=== PATIENT | male | born 1955 | race Two or more races ===

== ENCOUNTER → 2020-03-16 09:21 | Outpatient (CLI) | payer OTHER | END | disposition home or self-care (01) | LOC: LAB 09:21 | PROVIDERS: ATTEND Internal Medicine Cardiovascular Disease | DX: N40.0 Benign prostatic hyperplasia without lower urinary tract symptoms (principal); I10 Essential (primary) hypertension; E11.9 Type 2 diabetes mellitus without complications; E03.8 Other specified hypothyroidism; E78.2 Mixed hyperlipidemia; Z12.11 Encounter for screening for malignant neoplasm of colon; E55.9 Vitamin D deficiency, unspecified; J44.9 Chronic obstructive pulmonary disease, unspecified ==

== ENCOUNTER 2020-03-28 12:13 | Outpatient (CLI) | payer OTHER | END 2020-03-28 12:27 | disposition home or self-care (01) | LOC: LAB 12:13 | PROVIDERS: ATTEND Internal Medicine Cardiovascular Disease | DX: I10 Essential (primary) hypertension (principal); R97.20 Elevated prostate specific antigen [PSA]; E03.8 Other specified hypothyroidism; D64.89 Other specified anemias; Z00.8 Encounter for other general examination ==

== ENCOUNTER → 2020-08-23 09:05 | Outpatient (CLI) | payer OTHER | END | disposition home or self-care (01) | LOC: LAB 09:05 | PROVIDERS: ATTEND Internal Medicine Cardiovascular Disease | DX: E03.8 Other specified hypothyroidism (principal); I10 Essential (primary) hypertension; E78.2 Mixed hyperlipidemia; E11.9 Type 2 diabetes mellitus without complications ==

== ENCOUNTER → 2020-12-13 11:03 | Outpatient (CLI) | payer OTHER | END | disposition home or self-care (01) | LOC: LAB 11:03 | PROVIDERS: ATTEND Internal Medicine Cardiovascular Disease | DX: E78.2 Mixed hyperlipidemia (principal) ==

== ENCOUNTER 2021-05-01 10:37 | Outpatient (CLI) | payer OTHER | END 2021-05-01 10:42 | disposition home or self-care (01) | LOC: RAD 10:37 | PROVIDERS: ATTEND General Practice | DX: G44.89 Other headache syndrome (principal); Z00.00 Encounter for general adult medical examination without abnormal findings ==

== ENCOUNTER 2021-05-23 12:15 | Outpatient (CLI) | payer OTHER | END 2021-05-23 13:37 | disposition home or self-care (01) | LOC: LAB 12:15 | PROVIDERS: ATTEND Radiology Diagnostic Radiology | DX: G44.52 New daily persistent headache (NDPH) (principal) ==

== ENCOUNTER 2021-06-05 10:05 | Outpatient (CLI) | payer OTHER | END 2021-06-05 10:13 | disposition home or self-care (01) | LOC: TOM 10:05 | PROVIDERS: ATTEND General Practice | DX: G93.89 Other specified disorders of brain (principal); G44.52 New daily persistent headache (NDPH) | CPT/HCPCS: 70470; Q9965 ==

== ENCOUNTER 2021-09-27 10:39 | Outpatient (CLI) | payer OTHER | END 2021-09-27 10:44 | disposition home or self-care (01) | LOC: LAB 10:39 | PROVIDERS: ATTEND General Practice | DX: D50.8 Other iron deficiency anemias (principal); N39.0 Urinary tract infection, site not specified; B96.29 Other Escherichia coli [E. coli] as the cause of diseases classified elsewhere; E11.21 Type 2 diabetes mellitus with diabetic nephropathy; I10 Essential (primary) hypertension; E03.4 Atrophy of thyroid (acquired); E78.2 Mixed hyperlipidemia; K62.5 Hemorrhage of anus and rectum; R10.84 Generalized abdominal pain; N40.1 Benign prostatic hyperplasia with lower urinary tract symptoms; I48.0 Paroxysmal atrial fibrillation ==

== ENCOUNTER 2021-10-25 12:06 | Outpatient (CLI) | payer OTHER | END 2021-10-25 12:14 | disposition home or self-care (01) | LOC: RAD 12:06 | PROVIDERS: ATTEND Chiropractor | DX: M99.01 Segmental and somatic dysfunction of cervical region (principal); M99.02 Segmental and somatic dysfunction of thoracic region; M99.03 Segmental and somatic dysfunction of lumbar region; M99.05 Segmental and somatic dysfunction of pelvic region ==

== ENCOUNTER → 2022-05-14 09:59 | Outpatient (CLI) | payer OTHER | END | disposition home or self-care (01) | LOC: LAB 09:59 | PROVIDERS: ATTEND General Practice | DX: D50.0 Iron deficiency anemia secondary to blood loss (chronic) (principal); N39.0 Urinary tract infection, site not specified; E11.21 Type 2 diabetes mellitus with diabetic nephropathy; I10 Essential (primary) hypertension; E03.4 Atrophy of thyroid (acquired); E78.2 Mixed hyperlipidemia; K62.5 Hemorrhage of anus and rectum; R10.84 Generalized abdominal pain; N40.1 Benign prostatic hyperplasia with lower urinary tract symptoms; I48.0 Paroxysmal atrial fibrillation; A63.0 Anogenital (venereal) warts; B96.29 Other Escherichia coli [E. coli] as the cause of diseases classified elsewhere ==

== ENCOUNTER 2023-01-16 11:51 | Outpatient (CLI) | payer OTHER | END 2023-01-16 11:56 | disposition home or self-care (01) | LOC: RAD 11:51 | DX: J44.9 Chronic obstructive pulmonary disease, unspecified (principal); J30.89 Other allergic rhinitis ==

== ENCOUNTER 2023-06-30 09:37 | Outpatient (CLI) | payer OTHER ==
[2023-06-30 10:12] LABS: HEMATOCRIT 42.2 % (39.0-48.0); HEMOGLOBIN 13.8 g/dL (13-16.00); MEAN CELL VOLUME 88.1 fL (80.0-100.00); MEAN CORPUSCULAR HEMOGLOBIN 28.8 pg (27.00-32.0); MEAN CORPUSCULAR HGB CONC 32.7 g/dl (32.0-36.0); PLATELET COUNT 215 K/uL (150-450); RED BLOOD COUNT 4.79 M/uL (4.00-6.00); RED CELL DISTRIBUTION WIDTH 13.4 % (11.5-14.5)
[2023-06-30 10:14] LABS: PH,URINE 6.5 (5.0-8.0); URINE APPEARANCE Clear; URINE BILIRRUBIN Negative (NEGATIVE); URINE BLOOD Negative; URINE COLOR Yellow; URINE GLUCOSE Negative (NEGATIVE); URINE LEUKOCYTE Trace; URINE NITRATE Negative; URINE PROTEIN Negative (NEGATIVE); URINE UROBILINOGEN 0.2 E.U./dl
[2023-06-30 10:15] LABS: URINE BACTERIA 6.2 uL (0.0-1933); URINE EPITHELIAL CELLS 1.6 uL (0.0-38.8); URINE WBC 20.2 uL (0.0-23.2)
[2023-06-30 10:26] LABS: URINE RBC 0.7 uL (0.0-20.8)
[2023-06-30 10:58] LABS: ALBUMIN 3.7 gm/dL (3.4-5.0); BILIRUBIN TOTAL 0.39 mg/dL (0.3-1.2); CALCIUM 8.9 mg/dL (8.5-10.1); CREATININE SERUM 1.09 mg/dL (0.70-1.30); GFR 67.47; GLOBULINA 3.1 G/DL (2.4-3.5); POTASSIUM 5.01 mEq/L (3.5-5.1); TOTAL PROTEIN 6.8 gm/dL (6.4-8.2); TSH 1.46 uIU/mL (0.358-3.74)
[2023-06-30 11:03] LABS: CHOL HDL RATIO 6.5 (0-5.0)
== END 2023-06-30 09:44 | disposition home or self-care (01) ==
LOC: LAB 09:37
DX: N39.0 Urinary tract infection, site not specified (principal); E11.21 Type 2 diabetes mellitus with diabetic nephropathy; I10 Essential (primary) hypertension; E03.4 Atrophy of thyroid (acquired); E78.2 Mixed hyperlipidemia; K62.5 Hemorrhage of anus and rectum; R10.84 Generalized abdominal pain; I48.0 Paroxysmal atrial fibrillation; D68.9 Coagulation defect, unspecified; A63.0 Anogenital (venereal) warts

== ENCOUNTER → 2023-11-18 11:50 | Outpatient (CLI) | payer OTHER ==
[2023-11-18 12:47] LABS: HEMATOCRIT 40.9 % (39.0-48.0); HEMOGLOBIN 13.7 g/dL (13-16.00); MEAN CELL VOLUME 86.9 fL (80.0-100.00); MEAN CORPUSCULAR HEMOGLOBIN 29.2 pg (27.00-32.0); MEAN CORPUSCULAR HGB CONC 33.6 g/dl (32.0-36.0); PLATELET COUNT 203 K/uL (150-450); RED CELL DISTRIBUTION WIDTH 13.9 % (11.5-14.5)
[2023-11-18 12:51] LABS: URINE APPEARANCE Clear; URINE BILIRRUBIN Negative (NEGATIVE); URINE BLOOD Negative; URINE COLOR Yellow; URINE GLUCOSE Negative (NEGATIVE); URINE LEUKOCYTE Trace; URINE NITRATE Negative; URINE PROTEIN Negative (NEGATIVE); URINE UROBILINOGEN 0.2 E.U./dl
[2023-11-18 12:55] LABS: URINE WBC 12.4 uL (0.0-23.2)
[2023-11-18 13:19] LABS: ALBUMIN 3.8 gm/dL (3.4-5.0); BILIRUBIN TOTAL 0.35 mg/dL (0.3-1.2); CALCIUM 8.5 mg/dL (8.5-10.1); CHOL HDL RATIO 6.2 (0-5.0); CREATININE SERUM 1.05 mg/dL (0.70-1.30); GFR 70.45; GLOBULINA 2.7 G/DL (2.4-3.5); POTASSIUM 4.43 mEq/L (3.5-5.1); PROSTATIC SPECIFIC ANTIGEN 2.93 NG/ML (0.010-4.00); TOTAL PROTEIN 6.5 gm/dL (6.4-8.2); TSH 1.23 uIU/mL (0.358-3.74)
== END | disposition home or self-care (01) ==
LOC: LAB 11:50
PROVIDERS: ATTEND General Practice
DX: D50.0 Iron deficiency anemia secondary to blood loss (chronic) (principal); N39.0 Urinary tract infection, site not specified; E11.21 Type 2 diabetes mellitus with diabetic nephropathy; I10 Essential (primary) hypertension; E78.2 Mixed hyperlipidemia; K62.5 Hemorrhage of anus and rectum; R10.84 Generalized abdominal pain; Z12.11 Encounter for screening for malignant neoplasm of colon; N40.1 Benign prostatic hyperplasia with lower urinary tract symptoms; D68.9 Coagulation defect, unspecified; A63.0 Anogenital (venereal) warts

== ENCOUNTER 2023-11-24 10:58 | Outpatient (CLI) | payer OTHER ==
[2023-11-24 13:31] LABS: ob NEGATIVE (NEGATIVE)
== END 2023-11-24 10:59 | disposition home or self-care (01) ==
LOC: LAB 10:58
PROVIDERS: ATTEND General Practice
DX: D50.0 Iron deficiency anemia secondary to blood loss (chronic) (principal); N39.0 Urinary tract infection, site not specified; E11.21 Type 2 diabetes mellitus with diabetic nephropathy; E03.4 Atrophy of thyroid (acquired); E78.2 Mixed hyperlipidemia; K62.5 Hemorrhage of anus and rectum; R10.84 Generalized abdominal pain; Z12.11 Encounter for screening for malignant neoplasm of colon; N40.1 Benign prostatic hyperplasia with lower urinary tract symptoms; D68.9 Coagulation defect, unspecified; I48.0 Paroxysmal atrial fibrillation; A63.0 Anogenital (venereal) warts

== ENCOUNTER 2024-03-04 09:30 | Outpatient (CLI) | payer OTHER | END 2024-03-04 09:36 | disposition home or self-care (01) | LOC: RAD 09:30 | PROVIDERS: ATTEND General Practice | DX: J20.9 Acute bronchitis, unspecified (principal) ==

== ENCOUNTER 2024-06-01 09:57 | Outpatient (CLI) | payer OTHER | END 2024-06-01 10:07 | disposition home or self-care (01) | LOC: RAD 09:57 | PROVIDERS: ATTEND General Practice | DX: R22.1 Localized swelling, mass and lump, neck (principal) ==

== ENCOUNTER 2024-08-19 10:47 | Outpatient (CLI) | payer OTHER ==
[2024-08-19 11:41] LABS: URINE APPEARANCE Clear; URINE BILIRRUBIN Negative (NEGATIVE); URINE BLOOD Negative; URINE COLOR Yellow; URINE GLUCOSE Negative (NEGATIVE); URINE KETONE Negative (NEGATIVE); URINE LEUKOCYTE Small; URINE NITRATE Negative; URINE PROTEIN Negative (NEGATIVE); URINE UROBILINOGEN 0.2 E.U./dl
[2024-08-19 11:42] LABS: URINE BACTERIA 15.8 uL (0.0-1933); URINE EPITHELIAL CELLS 2.5 uL (0.0-38.8); URINE WBC 16.4 uL (0.0-23.2)
[2024-08-19 11:43] LABS: HEMATOCRIT 42.5 % (39.0-48.0); HEMOGLOBIN 14.1 g/dL (13-16.00); MEAN CELL VOLUME 86.4 fL (80.0-100.00); MEAN CORPUSCULAR HEMOGLOBIN 28.6 pg (27.00-32.0); MEAN CORPUSCULAR HGB CONC 33.1 g/dl (32.0-36.0); PLATELET COUNT 213 K/uL (150-450); RED BLOOD COUNT 4.92 M/uL (4.00-6.00); RED CELL DISTRIBUTION WIDTH 14.1 % (11.5-14.5)
[2024-08-19 11:44] LABS: URINE CAST 0.14 uL (0.0-1.40)
[2024-08-19 12:54] LABS: ALBUMIN 3.9 gm/dL (3.4-5.0); BILIRUBIN TOTAL 0.45 mg/dL (0.3-1.2); CALCIUM 8.7 mg/dL (8.5-10.1); CREATININE SERUM 1.14 mg/dL (0.70-1.30); GFR 63.88; GLOBULINA 3.1 G/DL (2.4-3.5); POTASSIUM 5.01 mEq/L (3.5-5.1); PROSTATIC SPECIFIC ANTIGEN 3.25 NG/ML (0.010-4.00); TSH 1.4 uIU/mL (0.358-3.74)
[2024-08-19 12:56] LABS: CHOL HDL RATIO 6.9 (0-5.0)
[2024-08-19 13:04] LABS: VITAMIN D3 25 HYDROXY 59.28 ng/ml (30-120)
== END 2024-08-19 10:56 | disposition home or self-care (01) ==
LOC: LAB 10:47
PROVIDERS: ATTEND General Practice
DX: E21.5 Disorder of parathyroid gland, unspecified (principal); D50.0 Iron deficiency anemia secondary to blood loss (chronic); N39.0 Urinary tract infection, site not specified; I10 Essential (primary) hypertension; E03.4 Atrophy of thyroid (acquired); E78.2 Mixed hyperlipidemia; Z12.11 Encounter for screening for malignant neoplasm of colon; N40.0 Benign prostatic hyperplasia without lower urinary tract symptoms; D51.9 Vitamin B12 deficiency anemia, unspecified; E55.9 Vitamin D deficiency, unspecified

== ENCOUNTER 2024-09-10 09:43 | Outpatient (CLI) | payer OTHER | END 2024-09-10 09:49 | disposition home or self-care (01) | LOC: TOM 09:43 | PROVIDERS: ATTEND Internal Medicine Pulmonary Disease | DX: R06.02 Shortness of breath (principal); J43.1 Panlobular emphysema ==

== ENCOUNTER 2025-01-05 10:25 | Emergency (ER) | payer OTHER ==
[~2025-01-05] VITALS: Ht 177.8 cm; Wt 76.2 kg
[2025-01-05] MEDS ORDERED: BUSPIRONE HCL5 MG PO (10:31)
[2025-01-05] MEDS ORDERED: TAMS0.4C PO (10:32)
== END 2025-01-05 14:43 | disposition home or self-care (01) ==
LOC: ER 10:26
DX: D17.9 Benign lipomatous neoplasm, unspecified (principal); Z88.6 Allergy status to analgesic agent

== ENCOUNTER → 2025-02-15 08:47 | Outpatient (CLI) | payer OTHER ==
[~2025-02-15 08:47] MED LIST: BUSPIRONE HCL5 MG PO; TAMS0.4C PO
[2025-02-15 09:30] LABS: BASO % 0.6 % (0.1-1.2); EOS # 0.15 (0.04-0.54); EOS % 2.4 % (0.7-7.0); HEMATOCRIT 41.6 % (40.1-51.0); HEMOGLOBIN 13.5 g/dL (13.7-17.5); LYMPH # 1.49 (1.18-3.74); LYMPH % 23.8 % (19.3-53.1); MEAN CORPUSCULAR HEMOGLOBIN 28.2 pg (25.6-32.2); MONO # 0.56 (0.24-0.82); NEUT # 3.99 (1.56-6.13); NEUT % 63.9 % (34.0-71.1); PLATELET COUNT 230 K/uL (163-369); RED BLOOD COUNT 4.78 M/uL (4.63-6.08)
[2025-02-15 09:37] LABS: PH,URINE 6.5 (5.0-8.0); URINE APPEARANCE Clear; URINE BILIRRUBIN Negative (NEGATIVE); URINE BLOOD Negative; URINE COLOR Yellow; URINE GLUCOSE Negative (NEGATIVE); URINE KETONE Negative (NEGATIVE); URINE LEUKOCYTE Trace; URINE NITRATE Negative; URINE PROTEIN Negative (NEGATIVE); URINE UROBILINOGEN 0.2 E.U./dl
[2025-02-15 09:38] LABS: URINE EPITHELIAL CELLS 1.4 uL (0.0-38.8); URINE WBC 16.2 uL (0.0-23.2)
[2025-02-15 09:42] LABS: URINE BACTERIA 3.6 uL (0.0-1933); URINE RBC 1.6 uL (0.0-20.8)
[2025-02-15 11:07] LABS: ALBUMIN 3.6 gm/dL (3.4-5.0); BILIRUBIN TOTAL 0.36 mg/dL (0.3-1.2); CALCIUM 8.7 mg/dL (8.5-10.1); CREATININE SERUM 1.07 mg/dL (0.70-1.30); GFR 68.72; GLOBULINA 3.1 G/DL (2.4-3.5); POTASSIUM 4.4 mEq/L (3.5-5.1); PROSTATIC SPECIFIC ANTIGEN 2.95 NG/ML (0.010-4.00); TOTAL PROTEIN 6.7 gm/dL (6.4-8.2); TSH 1.69 uIU/mL (0.358-3.74)
[2025-02-15 11:15] LABS: CHOL HDL RATIO 6.7 (0-5.0)
[2025-02-15 12:05] LABS: VITAMIN D3 25 HYDROXY 60.32 ng/ml (30-120)
== END | disposition home or self-care (01) ==
LOC: LAB 08:47
PROVIDERS: ATTEND General Practice
DX: D50.0 Iron deficiency anemia secondary to blood loss (chronic) (principal); N39.0 Urinary tract infection, site not specified; E11.21 Type 2 diabetes mellitus with diabetic nephropathy; I10 Essential (primary) hypertension; E03.4 Atrophy of thyroid (acquired); E78.2 Mixed hyperlipidemia; Z12.11 Encounter for screening for malignant neoplasm of colon; D68.9 Coagulation defect, unspecified; A53.9 Syphilis, unspecified; N40.0 Benign prostatic hyperplasia without lower urinary tract symptoms

== ENCOUNTER → 2025-05-20 11:32 | Outpatient (CLI) | payer OTHER ==
[2025-05-20 13:09] LABS: CHOL HDL RATIO 4.6 (0-5.0); HDL 44.0 mg/dl (40-60); LDL 118.0 mg/dl (0-130); VLDL 40.0 (0-39)
== END | disposition home or self-care (01) ==
LOC: LAB 11:32
PROVIDERS: ATTEND General Practice
DX: E21.5 Disorder of parathyroid gland, unspecified (principal); E21.3 Hyperparathyroidism, unspecified; D50.0 Iron deficiency anemia secondary to blood loss (chronic); N39.0 Urinary tract infection, site not specified; I10 Essential (primary) hypertension; E03.4 Atrophy of thyroid (acquired); E78.2 Mixed hyperlipidemia; Z12.11 Encounter for screening for malignant neoplasm of colon; E11.21 Type 2 diabetes mellitus with diabetic nephropathy; I48.0 Paroxysmal atrial fibrillation; D68.9 Coagulation defect, unspecified; A53.9 Syphilis, unspecified; N40.0 Benign prostatic hyperplasia without lower urinary tract symptoms; R84.5 Abnormal microbiological findings in specimens from respiratory organs and thorax; D51.9 Vitamin B12 deficiency anemia, unspecified; E55.9 Vitamin D deficiency, unspecified; E22.1 Hyperprolactinemia

== ENCOUNTER 2025-07-06 13:29 | Emergency (ER) | payer OTHER ==
[~2025-07-06] VITALS: Ht 177.8 cm; Wt 72.6 kg
[2025-07-06] MEDS ORDERED: NASAL MIST126 ML (15:05)
[2025-07-06] MEDS ORDERED: FAMOTIDINE/PF 20 MG/2 ML VIAL IV ONE (16:15)
[2025-07-06] MEDS ORDERED: KETOROLAC TROMETHAMINE 30 MG VIAL IV ONE (16:15)
[2025-07-06] MEDS ORDERED: CEFTRIAXONE SODIUM 1,000 MG VIAL IV ONE (16:15)
[2025-07-06] MEDS ORDERED: DEXAMETHASONE SODIUM PHOSP/PF 10 MG/ML VIAL IV ONE (16:15)
[2025-07-06 17:39] LABS: ERYTHROCYTE SEDIMENTATION RATE 9 mm/hr (0-20)
[2025-07-06 17:41] LABS: BASO % 0.5 % (0.1-1.2); EOS # 0.17 (0.04-0.54); EOS % 2.1 % (0.7-7.0); LYMPH # 1.91 (1.18-3.74); LYMPH % 23.9 % (19.3-53.1); MEAN PLATELET VOLUME 10.20 fl (9.4-12.4); MONO # 0.72 (0.24-0.82); MONO % 9.0 % (4.7-12.5); NEUT # 5.14 (1.56-6.13); NEUT % 64.2 % (34.0-71.1); RED CELL DISTRIBUTION WIDTH 13.5 % (11.6-14.4)
[2025-07-06 18:13] LABS: ALT/SGPT 30 U/L (12-78); AST/SGOT 21 U/L (15-37); BILIRUBIN TOTAL 0.31 mg/dL (0.3-1.2); BUN CREA RATIO 18 (7.0-25.0); CREATININE SERUM 1.09 mg/dL (0.70-1.30); GFR 67.07; GLOBULINA 3.4 G/DL (2.4-3.5); GLUCOSE FASTING 116 mg/dL (65-100); OSMOLALITY SERUM 290 MOSM/KG (275-295)
[2025-07-06] MEDS ORDERED: AVIDOXY100 MG PO (20:15)
== END 2025-07-06 20:41 | disposition home or self-care (01) ==
LOC: ER 13:29
PROVIDERS: Student in an Organized Health Care Education/Training Program
DX: R22.9 Localized swelling, mass and lump, unspecified (principal); M54.2 Cervicalgia; Z88.6 Allergy status to analgesic agent
CPT/HCPCS: 36415; 70490; 96365; 99284; J0696; J1100; J1885; J3490